=== PATIENT | female | born 1970 | race Caucasian/White ===

== ENCOUNTER 2021-03-06 15:59 | Observation (INO) ==
[2021-03-06] MEDS ORDERED: Perflutren Lipid Microsphere 1.3 ML in 0.9 % Sodium Chloride 8.7 ML IVP PRN (19:40)
[2021-03-06] MEDS ORDERED: Dextrose Gel 15 GM/37.5 ML TUBE PO PRN ×2 (20:06)
[2021-03-06] MEDS ORDERED: *HR* Dextrose 50 % in Water (Syg) 50 ML SYRINGE IVP PRN (20:06)
[2021-03-06] MEDS ORDERED: Melatonin 3 MG TABLET PO PRN (20:06)
[2021-03-06] MEDS ORDERED: D5% in Water 1,000 ML IVC PRN (20:06)
[2021-03-06] MEDS ORDERED: Naloxone 0.4 MG/ML INJ IVP PRN (20:06)
[2021-03-06] MEDS ORDERED: Acetaminophen 325 MG TABLET PO PRN (20:06)
[2021-03-06] MEDS ORDERED: Morphine Sulfate 2 MG/ML SYRINGE IVP PRN (20:09)
[2021-03-06 20:35] LABS: Chol/HDL Ratio 2.9 (0-4.9); Cholesterol 173 mg/dL (< 200); HDL Cholesterol 59 mg/dL (40-59); LDL Cholesterol,Calculated 83 mg/dL (< 100); Triglycerides 157 mg/dL (< 150)
[2021-03-06 20:42] LABS: Troponin I < 0.03 ng/mL (< 0.04)
[2021-03-07] MEDS: Insulin LISPRO 300 UNITS/3 ML VIAL SUBQ SCH ×3 (03:28→11:43)
[2021-03-07 05:42] LABS: Basophils % 0.4 %; Eosinophils # 0.1 K/mcL (0.0-0.6); Hematocrit 33.4 % (35.3-44.9); Hemoglobin 10.9 g/dL (11.5-15.4); Immature Granulocytes % 0.3 % (0-4); Lymphocytes # 2.5 K/mcL (0.6-4.6); Lymphocytes % 35.2 %; Mean Corpuscular HGB Conc 32.6 g/dL (31.6-35.5); Mean Corpuscular Hemoglobin 28.1 pg (28.0-33.3); Mean Corpuscular Volume 86.1 fL (83.0-100.0); Monocytes # 0.4 K/mcL (0.0-1.3); Monocytes % 5.5 %; Platelet Count 234 K/mcL (140-400); Red Blood Count 3.88 M/mcL (3.82-4.97); Red Cell Distribution Width 12.9 % (11.5-14.5); Segmented Neutrophils % 56.6 %
[2021-03-07 05:53] LABS: Estimated Average Glucose 120 mg/dl; Hemoglobin A1C 5.8 %
[2021-03-07 05:59] LABS: BUN/Creatinine Ratio 22 (6-26); Blood Urea Nitrogen 13 mg/dL (6-20); Calcium 8.6 mg/dL (8.6-10.3); Carbon Dioxide 25 mEq/L (23-29); Chloride 103 mEq/L (98-107); Glucose 113 mg/dL (70-105); Osmolality,Calculated 285 (280-300); Potassium 3.6 mEq/L (3.5-5.1); Sodium 137 mEq/L (136-145); eGFR For African Americans > 60 (> 60); eGFR For Non-African Americans > 60 (> 60)
[2021-03-07] MEDS ORDERED: *HR* Heparin 5,000 UNIT/ML VIAL SQ SCH (06:00)
[2021-03-07] MEDS ORDERED: Regadenoson 0.4 MG/5 ML SYRINGE IVP ONE (06:48)
[2021-03-07 07:02] VITALS: TEMP 97.8
[2021-03-07] MEDS ORDERED: Aspirin 81 MG TAB.CHEW PO SCH (09:00)
[2021-03-07] MEDS ORDERED: Ibuprofen 400 MG TABLET PO PRN (10:47)
[2021-03-07 11:11] VITALS: BP 120/77; PULSE 70; O2SAT 96
== END 2021-03-07 13:52 | disposition home or self-care (01) ==
LOC: 3BNU → SUATTDRO 18:35
PROVIDERS: ADMIT Internal Medicine; ATTEND Registered Nurse